=== PATIENT | female | born 2000 | race Caucasian/White ===

== ENCOUNTER 2025-05-28 23:58 | Inpatient (IN) | payer MEDICAID, OTHER ==
[2025-05-29] MEDS ORDERED: Carboprost 250 MCG/ML AMP IM PRN (00:54)
[2025-05-29] MEDS ORDERED: hydrALAZINE 20 MG/ML VIAL SLOW IVP PRN (00:54)
[2025-05-29] MEDS ORDERED: Diphenoxylate HCl/Atropine Tablet PO PRN ×2 (00:54)
[2025-05-29] MEDS ORDERED: Ondansetron PF 4 MG/2 ML Vial IVP PRN ×2 (00:54→03:24)
[2025-05-29] MEDS ORDERED: Acetaminophen 500 MG TAB PO PRN (00:54)
[2025-05-29] MEDS ORDERED: Methylergonovine 0.2 MG/ML VIAL IM PRN (00:54)
[2025-05-29] MEDS ORDERED: Tranexamic Acid 1,000 MG/10 ML VIAL IVP PRN (00:54)
[2025-05-29 00:56] VITALS: BMI 52.7
[2025-05-29 01:19] LABS: Hematocrit 36.9 % (34.9-44.5); Hemoglobin 11.8 g/dL (12.0-15.5); Mean Corpuscular Hemoglobin 26.5 pg (27.0-33.0); Mean Corpuscular Volume 82.7 fL (81.6-98.3); Platelet Count 148 10x3/uL (150-450); Red Blood Cell (RBC) Count 4.46 10x6/uL (3.90-5.03); White Blood Cell (WBC) Count 15.63 10x3/uL (3.5-10.5)
[2025-05-29] MEDS: fentaNYL/Ropivacaine Epidural 100 ML ONE (01:45)
[2025-05-29 01:54] LABS: Syphilis Antibody Index 0.03 S/CO (<1.00 Non-Reactive)
[2025-05-29 01:56] LABS: Hep B Surf Ag - L&D Non-Reactive S/CO (NonReactive)
[2025-05-29] MEDS ORDERED: Ibuprofen 800 MG TAB PO PRN (02:03)
[2025-05-29] MEDS ORDERED: Lidocaine 1% (PF) 30 ML VIAL SC PRN (02:03)
[2025-05-29] MEDS ORDERED: Oxytocin 30 units/NS 500 ML 500 ML IV SCH (02:15)
[2025-05-29 02:23] LABS: Cocaine Metabolite Screen Negative (Negative); THC/Cannabinoid Screen Negative (Negative); Tricyclic Screen Negative (Negative)
[2025-05-29] MEDS ORDERED: fentaNYL 2 mcg/Ropivacaine 0.2% Epidural 100 ML CADD EPIDURAL SCH (03:30)
[2025-05-29] MEDS ORDERED: Communication Order-Pharmacy FS SCH (03:30)
[2025-05-29] MEDS: diphenhydrAMINE 50 MG/ML VIAL IVP PRN (05:41)
[2025-05-29 11:47] LABS: Analyzer IN Cardio CS NICU; RapidComm Collect By L&D nurse; pH (Cord, venous) 7.308 (7.250-7.350)
[2025-05-29 11:50] LABS: Analyzer IN Cardio CS NICU
[2025-05-29] MEDS: Oxytocin 30 units/NS 500 ML 500 ML IV SCH (12:00)
[2025-05-29] MEDS: Ketorolac Tromethamine 30 MG (1 mL) VIAL IVP SCH (12:30)
[2025-05-29] MEDS ORDERED: Milk Of Magnesia 30 ML UDCUP PO PRN (14:26)
[2025-05-29] MEDS ORDERED: Lanolin Ointment 7 GM TUBE TOP PRN (14:26)
[2025-05-29] MEDS ORDERED: Bisacodyl 10 MG SUPP PR PRN (14:26)
[2025-05-29] MEDS: Ferrous Sulfate 325 MG TAB PO SCH (14:42)
[2025-05-29] MEDS: Benzocaine-Menthol 82.5 ML CAN TOP PRN (15:42)
[2025-05-29] MEDS ORDERED: Bupivacaine/Epinephrine 0.25% 30 ML VIAL ONE (19:15)
[2025-05-29] MEDS: Acetaminophen 325 MG TAB PO PRN (21:02)
[2025-05-29] MEDS: Ibuprofen 800 MG TAB PO SCH (22:30)
[2025-05-30 04:26] LABS: #Basophils 0.03 10x3/uL (0.0-0.2); #Eosinophils 0.08 10x3/uL (0.0-0.5); #Monocytes 0.89 10x3/uL (0.0-1.1); #Neutrophils 13.86 10x3/uL (1.5-8.4); %Basophils 0.2 % (0.0-2.0); %Eosinophils 0.5 % (0.0-6.0); %Lymphocytes 14.1 % (18.0-47.0); %Monocytes 5.1 % (0.0-10.0); %Neutrophils 79.2 % (40.0-75.0); Hematocrit 27.8 % (34.9-44.5); Hemoglobin 8.6 g/dL (12.0-15.5); Mean Corpuscular Hemoglobin 25.8 pg (27.0-33.0); Mean Corpuscular Volume 83.5 fL (81.6-98.3); Platelet Count 127 10x3/uL (150-450); Red Blood Cell (RBC) Count 3.33 10x6/uL (3.90-5.03); White Blood Cell (WBC) Count 17.47 10x3/uL (3.5-10.5)
[2025-05-30] MEDS: Boostrix 0.5 ML (Tdap) VIAL (>/=7 yrs of age) IM ONE (07:41)
[2025-05-31] MEDS: Cyclobenzaprine 10 MG TAB PO SCH (01:55)
[2025-05-31 04:28] LABS: Hematocrit 27.8 % (34.9-44.5); Hemoglobin 8.6 g/dL (12.0-15.5); Mean Corpuscular Hemoglobin 26.2 pg (27.0-33.0); Mean Corpuscular Volume 84.8 fL (81.6-98.3); Platelet Count 134 10x3/uL (150-450); Red Blood Cell (RBC) Count 3.28 10x6/uL (3.90-5.03); White Blood Cell (WBC) Count 14.32 10x3/uL (3.5-10.5)
[2025-05-31 04:29] LABS: #Basophils 0.05 10x3/uL (0.0-0.2); #Eosinophils 0.35 10x3/uL (0.0-0.5); #Monocytes 0.92 10x3/uL (0.0-1.1); #Neutrophils 10.12 10x3/uL (1.5-8.4); %Basophils 0.3 % (0.0-2.0); %Eosinophils 2.4 % (0.0-6.0); %Lymphocytes 19.2 % (18.0-47.0); %Monocytes 6.4 % (0.0-10.0); %Neutrophils 70.8 % (40.0-75.0)
[2025-05-31 10:55] VITALS: BP 128/78; TEMP 98.2
== END 2025-05-31 14:15 | disposition home or self-care (01) | DRG 807 ==
LOC: CSHLD/OP 23:58 → CSHLD 05-29 00:52 → CSHPED 05-29 15:15
PROVIDERS: ADMIT Family Medicine; ATTEND Family Medicine
PROC: 10D07Z6 Extraction of Products of Conception, Vacuum, Via Natural or Artificial Opening (ICD-10-PCS; principal; 2025-05-29)
PROC: 0KQM0ZZ Repair Perineum Muscle, Open Approach (ICD-10-PCS; 2025-05-29)
PROC: 0UQGXZZ Repair Vagina, External Approach (ICD-10-PCS; 2025-05-29)
PROC: 0UQMXZZ Repair Vulva, External Approach (ICD-10-PCS; 2025-05-29)
DX: O99.113 Other diseases of the blood and blood-forming organs and certain disorders involving the immune mechanism complicating pregnancy, third trimester (principal); Z37.0 Single live birth; O99.324 Drug use complicating childbirth; O99.891 Other specified diseases and conditions complicating pregnancy; O99.214 Obesity complicating childbirth; O77.9 Labor and delivery complicated by fetal stress, unspecified; O99.344 Other mental disorders complicating childbirth; D69.6 Thrombocytopenia, unspecified; F12.90 Cannabis use, unspecified, uncomplicated; R73.03 Prediabetes; E66.811 Obesity, class 1; F31.9 Bipolar disorder, unspecified; Z98.890 Other specified postprocedural states; Z90.89 Acquired absence of other organs; Z3A.39 39 weeks gestation of pregnancy
CPT/HCPCS: 51702; 80306; 82805; 85025; 85027; 86780; 86850; 86900; 86901; 87340; 99285; J1200; J1885; J2590